=== PATIENT | female | born 1945 | race Caucasian/White ===

== ENCOUNTER → 2016-08-28 | Outpatient (CLI) | payer OTHER | LOC: MOB LAB 11:55 | DX: R73.9 Hyperglycemia, unspecified (principal) | CPT/HCPCS: 36415; 83036; 99213 ==

== ENCOUNTER 2016-09-01 18:11 | Emergency (ER) | payer OTHER ==
[2016-09-01] MEDS ORDERED: oxyCODONE-ACETAMINOPHEN 5-325 TAB PO ONE (18:29)
[2016-09-01] MEDS ORDERED: KETOROLAC 60 MG/2 ML VIAL IM ONE (18:29)
--- NOTE | 2016-09-01 18:47 | PDOC ---
Back Pain / Injury HPI - General Chief Complaint: Neck / Back Complaint Stated Complaint: Lower back pain Date Seen by Provider: 09/01/16 Time Seen by Provider: 18:25 Source: Patient Exam Limitations: POSITIVE: No limitations Nurse's Notes Reviewed & Considered: Yes - History of Present Illness Initial Comments: The patient is a 71-year-old female who presents to the emergency department with low back pain. She states that yesterday she started to have some increased pain across her lower back. This pain has intensified over the past 24 hours. She denies any specific injury. She states that she has had some intermittent problems with low back pain however she has not had pain this intense nor that lasted this long in the past. She has tried taking a muscle relaxer as well as using a TENS unit without any significant improvement. Her pain is localized to the lower back and does not radiate into her legs. The pain is slightly worse on the right side compared to the left. She denies any urinary symptoms or hematuria. She has not had any fevers or chills, chest pain , abdominal pain, nausea or vomiting or any other associated complaints. She has not had any prior back surgery. Her current pain level is 8 out of 10. Her pain is worse with change in position and movement. - Patient Home Medications Home Medications: Home Medications Multivitamin [Daily Junaid] 2 tab PO QD #60 tab 07/21/15 Bifidobacterium Infantis [Digestive Probiotic] 1 cap PO QD #30 cap 05/02/16 Triamcinolone Acetonide 15 gm TOPICAL BID PRN #80 tube 05/02/16 Metformin HCl [Metformin HCl ER] 1 tab PO BID #60 tab 05/17/16 Esomeprazole Magnesium [Nexium] 1 cap PO BID #60 cap 08/29/16 Gabapentin [Neurontin] 1 cap PO TID #90 cap 08/29/16 Cyclobenzaprine HCl [Flexeril] 10 mg PO TID PRN #20 tab 09/01/16 oxyCODONE/APAP 5/325 Tab [Percocet 5/325 Tab] 1 tab PO Q4H PRN #15 tab - Patient Allergies Allergies/Adverse Reactions: Allergies Allergy/AdvReac Type Severity Reaction Status Date / Time gluten Allergy Intermediate vomiting Verified 09/01/16 18:16 tetanus and diphtheria Allergy Intermediate FULL BODY Verified 01/14/17 18:16 toxoids SWELLING [tetanus \T\ diphtheria toxoids] pantoprazole sodium AdvReac Intermediate diarrhea Verified 09/01/16 18:16 [From Protonix] primidone AdvReac DIZZINESS Verified 09/01/16 18:16 Past Medical History - heen HEENT History: Chipped or Loose Teeth Cardiovascular History: Denies History Respiratory History: Denies History Gastrointestinal History: GERD Genitourinary History: Denies History Endocrine History: Denies History Musculoskeletal History: Arthritis, Joint Pain Prosthesis or Implant: Yes (RIGHT KNEE) Neurological History: Motion Sickness Blood Disorders: Denies History Psychiatric History: Denies History History of Sexually Transmitted Diseases: No Cancer History: Breast, Skin History of MDRO: No History of Other Communicable Diseases: No Alcohol Use: None Substance Use Type: None Previous Surgical History: Yes Type / Date of Surgery: B BUNIONECTOMY/ HYST/ KNEE SCOPE/ TKA RIGHT/ TONSILLECTOMY / B BREAST BX Anesthesia Reactions: Yes (SEVERE NAUSEA) Malignant Hyperthermia: No Significant Family History: Heart disease, Cancer, COPD, Hypertension Past Medical History Reviewed: Reviewed - No Changes ROS - Limitations ROS Limitations: No Limitations Constitution: DENIES: Chills, Fever Cardiovascular: REPORTS: Denies Cardiac Symptoms Respiratory: REPORTS: Denies Resp Symptoms Neurological: DENIES: Numbness, Weakness Gastrointestinal: DENIES: Abdominal Pain, Nausea, Vomitting Genitourinary: DENIES: Dysuria, Dark Urine, Difficulty Urinating Eyes: REPORTS: Denies Symptoms ENT: REPORTS: Denies Symptoms Skin: DENIES: Rash Back Physical Assessment - General Appearance General Appearance: REPORTS: Alert, Cooperative, No Acute Distress - HEENT HEENT: POSITIVE: Head Inspection Nml, Eyes Inspection Nml, Ears Inspection Nml, Nose Inspection Nml - Neck Neck: POSITIVE: Non Tender, Trachea Midline - Respiratory / CVS Respiratory / CVS: POSITIVE: Breath Sounds Normal, No Respiratory Distress, Heart Sounds Normal, Regular Rate/Rhythm - Abdomen Abdomen: Soft: (All Quadrants), Denies Tenderness: (All Quadrants), No Palpabale Mass: (All Quadrants), No Distention: (All Quadrants) - Back Back: REPORTS: Normal Inspection, Other (She does have tenderness in the lower lumbar region centrally as well as in the paravertebral muscles more so on the right than left, no visible redness or swelling) - Skin Skin: REPORTS: Intact, No Rash - Extremities Extremity Assessment: Normal ROM: (ALL), Normal Inspection: (ALL) Peripheral Pulses: Dorsalis-pedis (R): 2+, Dorsalis-pedis (L): 2+ - Neurological / Psychological Neuro / Psych: POSITIVE: Oriented X3, Motor Normal, Sensation Normal, Other ( She does have significant tremor which is chronic) Back Progress - Results Reviewed by me Xrays/CTs/US Reviewed: Yes Discussed with Radiologist: Yes Radiology Findings: X-ray of the lumbar spine reveals extensive degenerative changes per radiologist, no acute fracture. Lab Results Reviewed: Yes Lab Results:: Laboratory Results 09/01/16 Range/Units 18:30 Ur Collection Type Clean catch urine Urine Color Yellow Urine Clarity Clear (CLEAR) Urine pH 6.0 (5.0-8.5) Ur Specific [place] 1.010 (1.005-1.030) Urine Protein Negative (NEG) mg/dl Urine Glucose (UA) Negative (NEG) mg/dL Urine Ketones Negative (NEG) Urine Occult Blood Negative (NEG) Urine Nitrate Negative (NEG) Urine Bilirubin Negative (NEG) Urine Urobilinogen 0.2 (0.2) EU/dL Ur Leukocyte Esterase Negative (NEG) Ur Culture Indicated? Culture not set - Patient's Progress MDM / ED Course: She was given Toradol 60 mg IM, Norflex 60 mg IM and Percocet 2 by mouth for pain. She got some slight pain relief and her pain level was down to a 6 or 7 out of 10. She was requesting that she wanted to go home. Results of the x- ray findings were discussed. She does have extensive degenerative changes noted in the lumbar spine. Her urinalysis is normal. At this point it seems most likely that her current pain is likely related to flareup from her arthritic changes in her lumbar spine with associated muscle spasm. She was advised to use regular anti-inflammatories either ibuprofen or Aleve. She was also prescribed Flexeril as needed for spasm and Percocet as needed for pain. She is advised return to the emergency room she develops increased pain, numbness or weakness in her legs, fevers or chills, any worsening or change in symptoms. Recommended follow-up with primary care in 3-5 days. - Consult Counseled: POSITIVE: Patient, RE: Lab Results, RE: Radiology Results, RE: DX, RE : Need for F/U Patient Care Time - Estimated PCT Patient Care Time (In Minutes): 25 Vital Signs - Recent Vital Signs Vital Signs: Vital Signs (Last 8 hours) Temp Pulse Resp BP Pulse Ox 09/01/16 18:11 98.0 F 81 18 144/84 94 - VS Reviewed Vital Signs Reviewed: Yes Discharge Clinical Impression: Acute low back pain Condition: Stable Prescriptions / Orders: Cyclobenzaprine HCl [Flexeril] 10 mg PO TID PRN #20 tab PRN Reason: Spasms oxyCODONE/APAP 5/325 Tab [Percocet 5/325 Tab] 1 tab PO Q4H PRN #15 tab PRN Reason: Pain Patient Instructions Given at Discharge: Back Pain (ED) Additional Instructions: The x-ray of your back does show extensive arthritic changes which is likely contributing to your current back pain. Recommend ibuprofen or Aleve regularly as an anti-inflammatory. In addition your been prescribed Percocet 5/325 which he can take one every 4-6 hours as needed for pain. In addition your been prescribed Flexeril 10 mg every 8 hours as needed for spasm. Try heat. Return to the emergency room if increased pain, fever, numbness or weakness in her legs , any worsening or change in symptoms. Recommend follow-up with primary care in 3-5 days. Follow Up With: MARTHA SAMS [Primary Care Provider] -
[2016-09-01 18:57] VITALS: RESP 18; TEMP 98
[2016-09-01 19:17] LABS: BILIRUBIN,URINE NEGATIVE (NEG); CLARITY,URINE CLEAR (CLEAR); GLUCOSE, URINE (UA) NEGATIVE (NEG); LEUKOCYTE ESTERASE ,URINE NEGATIVE (NEG); NITRATE,URINE NEGATIVE (NEG); OCCULT BLOOD,URINE NEGATIVE (NEG); PROTEIN,URINE NEGATIVE (NEG); URINE SAMPLE TYPE CLEAN CATCH URINE; UROBILINOGEN,URINE 0.2 EU/dL (0.2)
--- NOTE | 2016-09-01 19:30 | DI ---
LUMBAR SPINE SERIES, 09/01/2016 5:29 PM: Clinical History: Low back pain. Previous Exam: None at this facility. 3 routine upright views are submitted. The vertebral bodies are of normal height and size. No fractur es are identified. There is disc space narrowing at every lumbar level with the most severe narrowing at L5-S1. The pedicles are normal. There are degenerative arthritic changes in all of the apophyseal joints, but most severely between L3-4 and L5-S1 bilaterally. Both SI joints are normal. Reading: Diffuse chronic disc space narrowing from L1-2 through L5-S1 with extensive degenerative arthritic ch anges involving the apophyseal joints bilaterally between L3-4 and L5-S1.
[2016-09-01] MEDS ORDERED: oxyCODONE-ACETAMINOPHEN 5-325 TAB PO SCH (20:00)
[2016-09-01] MEDS ORDERED: CYCLOBENZAPRINE 10 MG TABLET PO SCH (20:00)
== END 2016-09-01 20:02 | disposition home or self-care (01) ==
LOC: ER 18:11
DX: M54.5 Low back pain (principal); M48.06 Spinal stenosis, lumbar region
CPT/HCPCS: 72100; 81003; 96372; 99283 ×2; J1885; J2360

== ENCOUNTER → 2016-09-21 | Outpatient (CLI) | payer OTHER | LOC: MMPC 09:00 | PROVIDERS: ATTEND Physician Assistant Medical | DX: J01.01 Acute recurrent maxillary sinusitis (principal); R05 Cough; R51 Headache; R19.7 Diarrhea, unspecified | CPT/HCPCS: 87400; 99213; G0463 ==

== ENCOUNTER → 2016-09-24 | Outpatient (CLI) | payer OTHER | LOC: MMPC 09:00 | PROVIDERS: ATTEND Physician Assistant Medical | DX: J01.01 Acute recurrent maxillary sinusitis (principal); N39.498 Other specified urinary incontinence | CPT/HCPCS: 81002; 99213; G0463 ==

== ENCOUNTER → 2016-10-03 | Outpatient (CLI) | payer OTHER | LOC: MMPC 09:00 | PROVIDERS: ATTEND Obstetrics & Gynecology | DX: N39.46 Mixed incontinence (principal) | CPT/HCPCS: 51701; 99213 ==

== ENCOUNTER → 2016-10-20 | Outpatient (CLI) | payer OTHER | LOC: MMPC 09:00 | PROVIDERS: ATTEND Physician Assistant Medical | DX: R06.02 Shortness of breath (principal); R05 Cough; Z87.891 Personal history of nicotine dependence | CPT/HCPCS: 99213; G0463 ==

== ENCOUNTER → 2016-10-22 | Outpatient (CLI) | payer OTHER | LOC: MMPC 09:00 | PROVIDERS: ATTEND Physician Assistant Medical | DX: R06.09 Other forms of dyspnea (principal); Z77.22 Contact with and (suspected) exposure to environmental tobacco smoke (acute) (chronic) | CPT/HCPCS: 99213; G0463 ==

== ENCOUNTER → 2016-10-30 | Outpatient (CLI) | payer OTHER | LOC: MMPC 09:00 | DX: R25.1 Tremor, unspecified (principal); E66.9 Obesity, unspecified; E11.9 Type 2 diabetes mellitus without complications; Z85.820 Personal history of malignant melanoma of skin; R32 Unspecified urinary incontinence; Z85.3 Personal history of malignant neoplasm of breast; Z96.659 Presence of unspecified artificial knee joint | CPT/HCPCS: 99213; G0463 ==

== ENCOUNTER → 2016-12-05 | Outpatient (CLI) | payer OTHER ==
[2016-12-05 09:39] LABS: BASOPHILS # (AUTO) 0.03 10*3/UL; BASOPHILS % (AUTO) 0.4 % (0-1); EOSINOPHILS # (AUTO) 0.11 10*3/UL; EOSINOPHILS % (AUTO) 1.6 % (0-8); HEMATOCRIT 41.3 % (37.0-47.0); LYMPHOCYTES # (AUTO) 2.22 10*3/uL; MEAN CORPUSCULAR HEMOGLOBIN 25.8 PG (27-31); MEAN CORPUSCULAR HGB CONC 31.5 g/dL (33-37); MEAN CORPUSCULAR VOLUME 82.1 FL (81-99); MEAN PLATELET VOLUME 10.2 FL (7.4-12.2); MONOCYTES # (AUTO) 0.54 10*3/UL (0.3-0.8); NEUTROPHILS # (AUTO) 3.86 10*3/UL; NEUTROPHILS % (AUTO) 57.1 % (50-80); RED BLOOD COUNT 5.03 10^6/uL (4.20-5.40)
[2016-12-05 10:00] LABS: PLATELET MORPHOLOGY COMMENT NORMAL MORPHOLOGY (NORM); RBC MORPHOLOGY COMMENT NORMAL MORPHOLOGY (NORM); WBC MORPHOLOGY COMMENT NORMAL MORPHOLOGY (NORM)
[2016-12-05 10:14] LABS: BLOOD UREA NITROGEN 11 mg/dL (7-22); BUN/CREATININE RATIO 18.33 (6-20); CALCIUM 9.4 mg/dL (8.7-10.7); EST GLOMERULAR FILTRATION > 60 (>60 ml/min/1.73m(2))
[2016-12-05 10:31] LABS: ERYTHROCYTE SEDIMENTATION RATE 13 MM/HR (0-20)
== END ==
LOC: LAB 09:00
PROVIDERS: ATTEND Psychiatry & Neurology Neurology
DX: G20 Parkinson's disease (principal); R53.83 Other fatigue; R26.89 Other abnormalities of gait and mobility
CPT/HCPCS: 36415; 80053; 82607; 83921; 84443; 85025; 85652

== ENCOUNTER → 2017-01-09 | Outpatient (CLI) | payer OTHER ==
[2017-01-09 11:41] LABS: HEMOGLOBIN A1C 6.81 % (4.2-6.0)
== END ==
LOC: MOB LAB 10:16
DX: E11.65 Type 2 diabetes mellitus with hyperglycemia (principal); T42.8X5A Adverse effect of antiparkinsonism drugs and other central muscle-tone depressants, initial encounter
CPT/HCPCS: 83036

== ENCOUNTER → 2017-03-20 | Outpatient (CLI) | payer OTHER | LOC: MMPC 11:11 | DX: G47.33 Obstructive sleep apnea (adult) (pediatric) (principal); G20 Parkinson's disease; R73.9 Hyperglycemia, unspecified; E66.9 Obesity, unspecified; Z85.3 Personal history of malignant neoplasm of breast; Z85.820 Personal history of malignant melanoma of skin | CPT/HCPCS: 99213; G0463 ==